=== PATIENT | female | born 1990 | race Two or more races ===

== ENCOUNTER 2016-10-15 00:27 | Emergency (ER) | payer MEDICAID ==
[~2016-10-15] VITALS: Ht 172.7 cm; Wt 113.4 kg
[2016-10-15 00:43] VITALS: BP 122/90
[2016-10-15] MEDS ORDERED: HYDROCODON-ACE1 EA15 ORAL (01:26)
[2016-10-15] MEDS ORDERED: AMOXICILLIN500 MG ORAL (01:26)
--- NOTE | 2016-10-15 01:26 | Emergency Room Report ---
History of Present Illness General Chief Complaint: Toothache Source: Patient Present Illness HPI Is a 26-year-old female with no significant past medical history. He presents with chief complaint of dental pain. Been ongoing for about a week but worse tonight. Pain is mostly the right upper jaw and also the lower jaw. No fever chills but no swelling. Pain is 10 out of 10. [id number] medication not helping. She scheduled see a dentist next week. Allergies: Coded Allergies: No Known Allergies (Unverified , 10/15/16) Patient History Past Medical History: see triage record, old chart reviewed Past Surgical History: none Pertinent Family History: none Social History: Denies: smoking Last Menstrual Period: 10/08/16 Now: No Immunizations: other Reviewed Nursing Documentation: PMH: Agreed, PSxH: Agreed Nursing Documentation-PMH Past Medical History: No Stated History Review of Systems Eye: Denies: blurred vision, eye pain ENT: Denies: ear pain, nose congestion, throat swelling Respiratory: Denies: cough, shortness of breath Cardiovascular: Denies: chest pain, palpitations Gastrointestinal: Denies: abdominal pain, diarrhea, nausea, vomiting Musculoskeletal: Denies: back pain, joint pain Skin: Denies: rash Neurological: Denies: headache, numbness Endocrine: Denies: increased thirst, increased urine Hematologic/Lymphatic: Denies: easy bruising All Other Systems: negative except mentioned in HPI Physical Exam Vital Signs Date Time Temp Pulse Resp B/P Pulse Ox O2 Delivery O2 Flow Rate FiO2 10/15/16 00:31 97.9 80 16 122/90 99 Room Air vitals normal Sp02 EP Interpretation: reviewed, normal General Appearance: well appearing, no apparent distress, alert Head: normocephalic, atraumatic Eyes: bilateral eye EOMI, bilateral eye PERRL ENT: hearing grossly normal, normal pharynx, other - Percussive tenderness oover her right upper second molar. No abscess. Neck: full range of motion, supple, no meningismus Respiratory: chest non-tender, lungs clear, normal breath sounds Cardiovascular #1: regular rate, rhythm, no murmur Gastrointestinal: normal bowel sounds, non tender, no mass, no organomegaly, no bruit, non-distended Musculoskeletal: back normal, gait/station normal, normal range of motion Psychiatric: mood/affect normal Skin: warm/dry Procedures Additional Procedure Procedure Narrative Procedure: Dental block Indication: Dental pain. Description: I injected the right infraorbital nerve with 2 mL of 1% lidocaine without epinephrine. Patient has good pain relief. No complication. She tolerated procedure without a problem. Medical Decision Making Diagnostic Impression: Primary Impression: Toothache Additional Impression: Dental infection ER Course Patient with dental pain. No abscess to be a I&D. [place] better now. We'll discharge home to Last Vital Signs Date Time Temp Pulse Resp B/P Pulse Ox O2 Delivery O2 Flow Rate FiO2 10/15/16 00:43 97.9 80 16 122/90 99 Room Air Status: improved Disposition: HOME, SELF-CARE Condition: Stable Scripts Amoxicillin* (AMOXIL*) 500 Mg Capsule 500 MG ORAL THREE TIMES A DAY, #21 CAP Prov: KECIA CROWLEY M.D. 10/15/16 Hydrocodone/Acetaminophen 5-325* (HYDROCODONE/ACETAMINOPHEN 5-325*) 1 Each Tablet 1 TAB ORAL Q6H Y for For Pain, #15 TAB 0 Refills Prov: KECIA CROWLEY M.D. 10/15/16 Patient Instructions: Dental Pain Additional Instructions: Followup with dentist VELASQUEZ. Return if worse. KECIA CROWLEY M.D. Oct 15, 2016 01:26
[2016-10-15 01:30] VITALS: BP 122/90
== END 2016-10-15 01:30 | disposition home or self-care (01) ==
LOC: EMR 01:02
DX: K08.89 Other specified disorders of teeth and supporting structures (principal); K04.7 Periapical abscess without sinus; R68.84 Jaw pain
CPT/HCPCS: 64400; 99284; Z7502